=== PATIENT | male | born 2005 | race Caucasian/White ===

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

== ENCOUNTER 2023-10-03 16:11 | Emergency (ER) | payer SELFPAY ==
[~2023-10-03] VITALS: Ht 325.1 cm; Wt 50.8 kg
[2023-10-03] MEDS ORDERED: methylPREDNISolone sod succ 125 MG VIAL IM ONE (17:45)
== END 2023-10-03 17:52 | disposition home or self-care (01) ==
LOC: ED 16:11
DX: R09.1 Pleurisy (principal); J45.909 Unspecified asthma, uncomplicated